=== PATIENT | female | born 1985 | race Caucasian/White ===

== ENCOUNTER 2024-04-08 20:44 | Emergency (ER) | payer OTHER ==
[2024-04-08 21:05] VITALS: BP 146/85; PULSE 84; RESP 18; TEMP 98.2; BMI 29.2
[2024-04-08] MEDS ORDERED: IBUPROFEN 400 MG TABLET (FP) PO ONE (21:39)
[2024-04-08] MEDS: IBUPROFEN 400 MG TABLET (FP) PO ONE (21:40)
== END 2024-04-08 23:21 | disposition home or self-care (01) ==
LOC: JER 20:44
DX: S63.632A Sprain of interphalangeal joint of right middle finger, initial encounter (principal); V00.141A Fall from scooter (nonmotorized), initial encounter
CPT/HCPCS: 73110-TC-RT-FY; 73130-TC-RT-FY; 99283-25